=== PATIENT | female | born 1975 | race Caucasian/White ===

== ENCOUNTER 2018-08-09 17:15 | Emergency (ER) | payer MEDICAID ==
[~2018-08-09] VITALS: Ht 160 cm; Wt 107.7 kg
[~2018-08-09 17:15] MED LIST: CARI250T PO; CLIN150C8 PO; CLIN300C54 PEG; CLON-527 PO; DIPH-423 PO; ESOM40CA PO; GABA-330 PO; IBUP-1984 PO; METH-603 PO; MILN100T PO; NORCO10T PO; SERT25TA PO; ZOF4T PO
[2018-08-09 20:00] LABS: BASOPHILS # (AUTO) 0.1 X10'3 (0-0.2); BASOPHILS % (AUTO) 0.9 % (0-1); EOSINOPHILS # (AUTO) 0.3 X10'3 (0-0.9); EOSINOPHILS % (AUTO) 4.3 % (0-6); HEMATOCRIT 38.6 % (35.0-45.0); LYMPHOCYTES # (AUTO) 2.6 X10'3 (1.1-4.8); LYMPHOCYTES % (AUTO) 33.9 % (21-51); MEAN CORPUSCULAR HEMOGLOBIN 28.4 PG (27.0-31.0); MEAN CORPUSCULAR HGB CONC 33.7 g/dL (33.0-36.5); MEAN CORPUSCULAR VOLUME 84.3 FL (78-98); MEAN PLATELET VOLUME 8.2 FL (7.4-10.4); MONOCYTES # (AUTO) 0.6 X10'3 (0-0.9); MONOCYTES % (AUTO) 7.9 % (2-12); NEUTROPHILS # (AUTO) 4.1 X10'3 (1.8-7.7); PLATELET COUNT 215 X10'3 (140-440); RED BLOOD COUNT 4.58 X10'6 (4.20-5.60); RED CELL DISTRIBUTION WIDTH 14.1 % (11.5-14.5); WHITE BLOOD COUNT 7.7 X10'3 (4.5-11.0)
[2018-08-09 20:17] LABS: ALANINE AMINOTRANSFERASE 45 U/L (12-78); ALBUMIN 2.9 G/DL (3.4-5.0); ALBUMIN/GLOBULIN RATIO 0.8 (1.1-1.5); ALKALINE PHOSPHATASE 80 IU/L (46-116); ANION GAP 9 (8-16); ASPARTATE AMINO TRANSFERASE 32 U/L (10-37); BILIRUBIN,TOTAL 0.1 MG/DL (0.1-1.0); BLOOD UREA NITROGEN 9 MG/DL (7-18); BUN/CREATININE RATIO 12.5 (6.6-38.0); CALCIUM 9.2 MG/DL (8.5-10.1); CHLORIDE 107 MMOL/L (99-107); CREATININE 0.72 MG/DL (0.40-0.90); GLUCOSE 96 MG/DL (70-104); LIPASE 107 U/L (73-393); POTASSIUM 3.8 MMOL/L (3.5-5.1); SODIUM 141 MMOL/L (135-145); TOTAL CARBON DIOXIDE 25.1 MMOL/L (24-32); TOTAL PROTEIN 6.6 G/DL (6.4-8.2); eGFR 88 ML/MIN
[2018-08-09] MEDS ORDERED: ketorolac tromethamine 15mg/ml inj. IM ONE (20:40)
[2018-08-09] MEDS ORDERED: diphenhydrAMINE 50 mg/ml inj IM ONE (20:40)
[2018-08-09] MEDS ORDERED: proCHLORperazine 10 MG/2 ml inj IM ONE (20:40)
[2018-08-09 20:45] VITALS: BP 115/76
--- NOTE | 2018-08-09 20:50 | NUR ---
disposed of pts [id number] bottle
== END 2018-08-09 22:15 | disposition home or self-care (01) ==
LOC: ER 17:16
DX: R19.00 Intra-abdominal and pelvic swelling, mass and lump, unspecified site (principal); T43.595A Adverse effect of other antipsychotics and neuroleptics, initial encounter; R22.41 Localized swelling, mass and lump, right lower limb; R22.0 Localized swelling, mass and lump, head; R22.31 Localized swelling, mass and lump, right upper limb; R10.84 Generalized abdominal pain; G89.29 Other chronic pain; F12.90 Cannabis use, unspecified, uncomplicated; Z88.0 Allergy status to penicillin; Z88.2 Allergy status to sulfonamides; Z88.8 Allergy status to other drugs, medicaments and biological substances; Z79.899 Other long term (current) drug therapy; Z79.2 Long term (current) use of antibiotics; Y92.89 Other specified places as the place of occurrence of the external cause
CPT/HCPCS: 36415; 74018; 80053; 83690; 85025; 96372; 99284; J0780; J1200; J1885

== ENCOUNTER 2018-09-09 14:52 | Emergency (ER) | payer MEDICAID ==
[~2018-09-09] VITALS: Ht 157.5 cm; Wt 120.0 kg
[2018-09-09 15:04] VITALS: BP 114/74
[2018-09-09 16:49] LABS: CLARITY,URINE CLOUDY (Clear); COLOR,URINE RED (Yellow)
[2018-09-09 16:51] LABS: UA COLLECTION TYPE CLN CATCH MIDSTREAM
[2018-09-09 16:56] LABS: BASOPHILS # (AUTO) 0.1 X10'3 (0-0.2); BASOPHILS % (AUTO) 0.7 % (0-1); EOSINOPHILS # (AUTO) 0.4 X10'3 (0-0.9); EOSINOPHILS % (AUTO) 4.1 % (0-6); HEMOGLOBIN 13.2 g/dl (12.0-16.0); LYMPHOCYTES # (AUTO) 2.5 X10'3 (1.1-4.8); LYMPHOCYTES % (AUTO) 28.4 % (21-51); MEAN CORPUSCULAR HEMOGLOBIN 28.7 PG (27.0-31.0); MEAN CORPUSCULAR HGB CONC 33.8 g/dL (33.0-36.5); MEAN CORPUSCULAR VOLUME 85.1 FL (78-98); MEAN PLATELET VOLUME 8.5 FL (7.4-10.4); MONOCYTES # (AUTO) 0.5 X10'3 (0-0.9); MONOCYTES % (AUTO) 5.6 % (2-12); NEUTROPHILS # (AUTO) 5.3 X10'3 (1.8-7.7); NEUTROPHILS % (AUTO) 61.2 % (42-75); PLATELET COUNT 257 X10'3 (140-440); RED BLOOD COUNT 4.59 X10'6 (4.20-5.60); RED CELL DISTRIBUTION WIDTH 14.3 % (11.5-14.5); WHITE BLOOD COUNT 8.7 X10'3 (4.5-11.0)
[2018-09-09 17:00] LABS: SQUAMOUS EPITHELIAL CELL,UR MANY /LPF (FEW)
[2018-09-09 17:01] LABS: BACTERIA,URINE 2+ /HPF (Neg); RBC,URINE 50-100 /HPF (0-2)
[2018-09-09 17:11] LABS: ALANINE AMINOTRANSFERASE 33 U/L (12-78); ALBUMIN/GLOBULIN RATIO 0.8 (1.1-1.5); ALKALINE PHOSPHATASE 85 IU/L (46-116); ANION GAP 6 (8-16); ASPARTATE AMINO TRANSFERASE 17 U/L (10-37); BILIRUBIN,TOTAL 0.1 MG/DL (0.1-1.0); BLOOD UREA NITROGEN 12 MG/DL (7-18); BUN/CREATININE RATIO 13.8 (6.6-38.0); CALCIUM 8.5 MG/DL (8.5-10.1); CHLORIDE 106 MMOL/L (99-107); CREATININE 0.87 MG/DL (0.40-0.90); GLUCOSE 93 MG/DL (70-104); SODIUM 137 MMOL/L (135-145); TOTAL CARBON DIOXIDE 25.5 MMOL/L (24-32); eGFR 71 ML/MIN
[2018-09-09 17:13] LABS: WBC,URINE 20-30 /HPF (0-4)
[2018-09-09] MEDS ORDERED: DOXY100C43 PO (17:54)
== END 2018-09-09 18:08 | disposition home or self-care (01) ==
LOC: ER 14:52
DX: N73.9 Female pelvic inflammatory disease, unspecified (principal); G89.29 Other chronic pain; F12.90 Cannabis use, unspecified, uncomplicated; Z88.2 Allergy status to sulfonamides; Z88.0 Allergy status to penicillin; Z88.6 Allergy status to analgesic agent; Z88.1 Allergy status to other antibiotic agents; Z88.8 Allergy status to other drugs, medicaments and biological substances; Z79.899 Other long term (current) drug therapy
CPT/HCPCS: 36415; 80053; 81001; 85025; 87210; 99283

== ENCOUNTER 2020-11-06 21:00 | Emergency (ER) | payer MEDICAID ==
[~2020-11-06] VITALS: Ht 157.5 cm; Wt 102.3 kg
[2020-11-06 21:04] VITALS: BP 128/78
[2020-11-06 22:36] LABS: CLARITY,URINE SLIGHTLY CLOUDY (Clear); COLOR,URINE YELLOW (Yellow); GLUCOSE, URINE NEGATIVE (Neg); KETONES,URINE NEGATIVE (Neg); LEUKOCYTE ESTERASE ,URINE MODERATE (Neg); NITRITES, URINE NEGATIVE (Neg); OCCULT BLOOD,URINE LARGE (Neg); PROTEIN,URINE NEGATIVE (Neg); UROBILINOGEN,URINE 0.2 E.U/dL (0.2-1.0)
[2020-11-06 22:45] LABS: UA COLLECTION TYPE CLN CATCH MIDSTREAM
[2020-11-06 22:50] LABS: BACTERIA,URINE NONE SEEN /HPF (Neg); RBC,URINE NONE SEEN /HPF (0-2); SQUAMOUS EPITHELIAL CELL,UR FEW /LPF (FEW)
[2020-11-06] MEDS ORDERED: NITR100C6 PO (23:13)
== END 2020-11-06 23:56 | disposition home or self-care (01) ==
LOC: ER 21:01
DX: N39.0 Urinary tract infection, site not specified (principal); G89.29 Other chronic pain; F12.90 Cannabis use, unspecified, uncomplicated; Z88.0 Allergy status to penicillin; Z88.8 Allergy status to other drugs, medicaments and biological substances; Z87.440 Personal history of urinary (tract) infections; Z88.2 Allergy status to sulfonamides; Z79.2 Long term (current) use of antibiotics; Z79.899 Other long term (current) drug therapy
CPT/HCPCS: 81001; 87088; 99283

== ENCOUNTER 2023-07-02 09:24 | Emergency (ER) | payer MEDICAID ==
[~2023-07-02] VITALS: Ht 160 cm; Wt 80.4 kg
[~2023-07-02 09:24] MED LIST changes: +CLIN-214 PO; -CLIN150C8 PO; +NITR100C6 PO
[2023-07-02 10:05] LABS: BASOPHILS % (AUTO) 0.6 % (0-1); EOSINOPHILS # (AUTO) 0.2 X10'3 (0-0.9); EOSINOPHILS % (AUTO) 2.7 % (0-6); HEMATOCRIT 45.8 % (35.0-45.0); HEMOGLOBIN 15.7 g/dl (12.0-16.0); LYMPHOCYTES # (AUTO) 1.9 X10'3 (1.1-4.8); LYMPHOCYTES % (AUTO) 26.1 % (21-51); MEAN CORPUSCULAR HEMOGLOBIN 29.9 PG (27.0-31.0); MEAN CORPUSCULAR HGB CONC 34.3 g/dL (33.0-36.5); MEAN CORPUSCULAR VOLUME 87.2 FL (78-98); MEAN PLATELET VOLUME 8.1 FL (7.4-10.4); MONOCYTES # (AUTO) 0.4 X10'3 (0-0.9); NEUTROPHILS # (AUTO) 4.7 X10'3 (1.8-7.7); NEUTROPHILS % (AUTO) 65.6 % (42-75); PLATELET COUNT 254 X10'3 (140-440); RED BLOOD COUNT 5.25 X10'6 (4.20-5.60); RED CELL DISTRIBUTION WIDTH 14.4 % (11.5-14.5); WHITE BLOOD COUNT 7.2 X10'3 (4.5-11.0)
[2023-07-02 10:25] LABS: ALBUMIN 4.1 G/DL (3.4-5.0); ANION GAP 9 (8-16); BLOOD UREA NITROGEN 14 MG/DL (7-18); BUN/CREATININE RATIO 17.7 (10.0-20.0); CALCIUM 9.5 MG/DL (8.5-10.1); CHLORIDE 104 MMOL/L (99-107); CREATININE 0.79 MG/DL (0.40-0.90); GLUCOSE 91 MG/DL (70-104); POTASSIUM 4.4 MMOL/L (3.5-5.1); PRO BRAIN NATRIURETIC PEPTIDE 66 PG/ML (0-125); SODIUM 141 MMOL/L (135-145); TOTAL CARBON DIOXIDE 27.9 MMOL/L (24-32); eCRCL 71 ML/MIN; eGFR 77 ML/MIN
[2023-07-02 12:16] LABS: PROTHROMBIN TIME 10.3 SECONDS (9.0-12.0)
[2023-07-02] MEDS ORDERED: NAPR-56 PO (13:01)
[2023-07-02] MEDS: HYDROcodone/acetaminophen 10/325mg tab PO ONE (13:18)
[2023-07-02] MEDS: ketorolac trometh. 30mg/ml inj. IM ONE (13:28)
[2023-07-02 13:44] VITALS: BP 117/76; PULSE 80; RESP 24; TEMP 98.1; O2SAT 99
== END 2023-07-02 13:46 | disposition home or self-care (01) ==
LOC: ER 09:25
DX: M54.6 Pain in thoracic spine (principal); F31.9 Bipolar disorder, unspecified; F12.90 Cannabis use, unspecified, uncomplicated; Z88.8 Allergy status to other drugs, medicaments and biological substances; Z88.0 Allergy status to penicillin; Z88.2 Allergy status to sulfonamides; Z88.6 Allergy status to analgesic agent; Z88.1 Allergy status to other antibiotic agents; Z79.899 Other long term (current) drug therapy; Z79.2 Long term (current) use of antibiotics; Z79.1 Long term (current) use of non-steroidal anti-inflammatories (NSAID)
CPT/HCPCS: 36415; 71045; 80048; 83880; 84484; 85025; 85379; 85610; 93005; 96372; 99285; J1885

== ENCOUNTER 2024-04-10 14:37 | Emergency (ER) | payer MEDICAID ==
[~2024-04-10] VITALS: Ht 160 cm; Wt 80.5 kg
[2024-04-10] MEDS ORDERED: HYDR-3965 PO (16:10)
[2024-04-10] MEDS: ketorolac trometh 30MG/ML vial 30 MG/ML VIAL IM ONE (16:22)
[2024-04-10 16:29] VITALS: BP 128/76; PULSE 78; RESP 14; TEMP 98.6; O2SAT 98
== END 2024-04-10 16:31 | disposition home or self-care (01) ==
LOC: ER 14:37
DX: S83.92XA Sprain of unspecified site of left knee, initial encounter (principal); S86.812A Strain of other muscle(s) and tendon(s) at lower leg level, left leg, initial encounter; M25.562 Pain in left knee; G89.29 Other chronic pain; F31.9 Bipolar disorder, unspecified; F12.90 Cannabis use, unspecified, uncomplicated; Z88.0 Allergy status to penicillin; Z88.2 Allergy status to sulfonamides; Z88.6 Allergy status to analgesic agent; Z88.8 Allergy status to other drugs, medicaments and biological substances; Z88.1 Allergy status to other antibiotic agents; Z79.899 Other long term (current) drug therapy; W18.40XA Slipping, tripping and stumbling without falling, unspecified, initial encounter; Y93.89 Activity, other specified; Y92.89 Other specified places as the place of occurrence of the external cause; Y99.8 Other external cause status
CPT/HCPCS: 73564; 73590; 73610; 96372; 99284; J1885